=== PATIENT | female | born 1930 | race Caucasian/White ===

== ENCOUNTER 2016-10-15 19:19 | Emergency (ER) | payer SELFPAY ==
[2016-10-15 19:35] VITALS: BP 230/112
--- NOTE | 2016-10-15 20:24 | UC ---
UC General HPI - HPI Summary HPI Summary: PT WENT TO PCP 2 DAYS AGO FOR THE FIRST TIME IN OVER 2 YEARS BECAUSE SHE RAN OUT OF HER ULCERATIVE COLITIS MEDICINE (MERCAPTOPURINE) AND NEEDED A REFILL. SHE WAS FOUND TO HAVE ELEVATED BP ~190/100. PT'S NIECE WAS ADVISED TO MONITOR IT AT HOME AND FOLLOW-UP IN A MONTH OR SOONER IF BP REMAINED HIGH. BP WAS MEASURED AT HOME TO BE 200/110 SO CALLED PCP OFFICE. PCP WAS UNABLE TO SEE PT TODAY SO ADVISED SHE COME HERE. PT IS ASYMPTOMATIC. FEELS WELL AT BASELINE. NO CP, SOB, NAUSEA, SWEATS, ARM PAIN, NUMBNESS, DIZZINESS, RANGEL. - History of Current Complaint Chief Complaint: UCGeneralIllness Stated Complaint: HIGH BLOOD PRESSURE Time Seen by Provider: 10/15/16 19:47 Hx Obtained From: Patient, Family/Interventional Physiatrist - NIECE Onset/Duration: Still Present Timing: Constant Associated Signs & Symptoms: Negative: Abdominal Pain, Back Pain, Confusion, Cough, Chest Pain, Dizziness, Diaphoresis, Edema, Fever, Headache, Nausea, Palpitations, Recent Medication Changes, Syncope, SOB, Vomiting, Weakness - Allergy/Home Medications Allergies/Adverse Reactions: Allergies Allergy/AdvReac Type Severity Reaction Status Date / Time No Known Allergies Allergy Verified 10/15/16 19:26 Home Medications: Home Medications Mercaptopur* 50 mg PO DAILY 10/15/16 [History Confirmed 10/15/16] PMH/Surg Hx/FS Hx/Imm Hx GI/ History: Other Other GI/ History: ULCERATIVE COLITIS Cancer History: Colorectal Cancer Other History Of: Negative For: Anticoagulant Therapy - Surgical History Surgical History: Yes Surgery Procedure, Year, and Place: colostomy with reversal - Family History Known Family History: Negative: Hypertension - Social History Alcohol Use: None Substance Use Type: None Smoking Status (MU): Former Smoker Type: Cigarettes Amount Used/How Often: less than 1 PPD Length of Time of Smoking/Using Tobacco: 9 years Have You Smoked in the Last Year: No When Did the Patient Quit Smoking/Using Tobacco: 30 years ago - Immunization History Most Recent Influenza Vaccination: Fall 2012 Most Recent Tetanus Shot: within the last 10 years Most Recent Pneumonia Vaccination: within the last 5 years Review of Systems Constitutional: Negative Skin: Negative Respiratory: Negative Cardiovascular: Negative Gastrointestinal: Negative Genitourinary: Negative Neurological: Negative All Other Systems Reviewed And Are Negative: Yes Physical Exam Triage Information Reviewed: Yes Appearance: Well-Appearing, No Pain Distress, Well-Nourished Vital Signs: Initial Vital Signs Temp 97.5 F 10/15/16 19:20 Pulse 70 10/15/16 19:20 Resp 16 10/15/16 19:20 BP 239/127 10/15/16 19:20 Pulse Ox 96 10/15/16 19:20 Vital Signs Reviewed: Yes Eyes: Positive: Conjunctiva Clear ENT: Positive: Hearing grossly normal Neck: Positive: Supple Respiratory Exam: Normal Cardiovascular Exam: Normal Abdomen Description: Positive: Soft Musculoskeletal: Positive: No Edema Neurological: Positive: Alert Psychological: Positive: Normal Response To Family, Age Appropriate Behavior Skin: Negative: rashes Course/Dx - Differential Dx - Multi-Symptom Provider Diagnoses: UNCONTROLLED HYPERTENSION Discharge - Discharge Plan Condition: Stable Disposition: HOME Prescriptions: Lisinopril [Prinivil TAB 20 mg] 20 mg PO DAILY #30 tab Patient Education Materials: Hypertension (ED) Referrals: Kole Moreno MD [Primary Care Provider] - 3 Days Additional Instructions: YOUR BLOOD PRESSURE HERE WAS 230/112. THIS IS DANGEROUSLY ELEVATED. SINCE YOU HAVE NO SYMPTOMS AND ARE FEELING OTHERWISE WELL WE WILL START YOU ON A BP MEDICINE TODAY. YOUR BP HAS LIKELY BEEN HIGH FOR A LONG TIME. TRACK YOUR BP 1-2 TIMES DAILY AND WRITE IT DOWN. FOLLOW-UP WITH DR. MORENO IN 3 DAYS FOR RECHECK AND FURTHER MANAGEMENT. GO TO ER WITHOUT FAIL IF YOU DEVELOP CHEST PAIN, SHORTNESS OF BREATH, NAUSEA, SWEATS, DIZZINESS OR ANY OTHER CONCERNING SYMPTOMS.
== END 2016-10-15 20:20 | disposition home or self-care (01) ==
LOC: UCEAST 19:19
DX: I10 Essential (primary) hypertension (principal); Z87.891 Personal history of nicotine dependence
CPT/HCPCS: 99212; G0463

== ENCOUNTER → 2018-08-17 10:36 | Day surgery (SDC) | payer MEDICARE ==
[~2018-08-17 10:36] MED LIST: Buffered Lidocaine 1% SYRIN* 1 ML/SYRINGE INTRADERM ONE; Bupivacaine 0.25% SDV PF* 10 ML VIAL INJ ONE; Lactated Ringers 1000 ML Bag* 1,000 ML IV SCH; Lidocain 1% EPI 1:100,000 * 30 ML MDV ONE; Lidocaine 2% PF * 5 ML VIAL ONE; Midazolam* 1 MG/ML 2 ML VIAL (2 MG) ONE; Naloxone* 0.4 MG/ML 1 ML VIAL IV PRN; Propofol* 10 MG/ML 20 ML BTL ONE; ceFAZolin 2 GM PREMIX in ORs 2 GM/50 ML BAG IVPB ONE; fentaNYL* 50 MCG/ML 2 ML VIAL (100 MCG VIAL) ONE
[2018-08-17 16:41] VITALS: BP 139/83
== END | disposition home or self-care (01) ==
LOC: OR 10:36
PROVIDERS: ATTEND Plastic Surgery
DX: C44.41 Basal cell carcinoma of skin of scalp and neck (principal); I10 Essential (primary) hypertension; Z87.891 Personal history of nicotine dependence; Q61.3 Polycystic kidney, unspecified; E78.00 Pure hypercholesterolemia, unspecified; I25.10 Atherosclerotic heart disease of native coronary artery without angina pectoris; I25.2 Old myocardial infarction; Z85.038 Personal history of other malignant neoplasm of large intestine
CPT/HCPCS: 88305; 88331; 88332; C1776; J0690; J2250; J2704; J3010; J3490